=== PATIENT | female | born 1965 | race Caucasian/White ===

== ENCOUNTER 2019-10-28 07:12 | Inpatient (IN) | payer BC ==
[~2019-10-28 07:12] MED LIST: Bupivacaine 0.5% 50 ML MDV ONE; Lidocaine 1% with EPINEPHrine 1:100,000 50 ML MDV ONE
[2019-10-28] MEDS ORDERED: Dextrose 5%-Lactated Ringers 1,000 ML IV SCH (08:00)
[2019-10-28] MEDS ORDERED: cefOXitin 2 GM in Sodium Chloride 0.9% 50 ML IV ONE (08:15)
[2019-10-28] MEDS ORDERED: Neomycin/Polymyxin B 1 ML, Sodium Chloride 0.9% 750 ML IRR ONE ×2 (08:15)
[2019-10-28] MEDS ORDERED: Naloxone 0.4 MG/ML SDV IVPUSH PRN (08:57)
[2019-10-28] MEDS ORDERED: Ketamine 50 MG in Sodium Chloride 0.9% 49.5 ML IV SCH (09:00)
[2019-10-28] MEDS ORDERED: Ketamine 500 MG/5 ML MDV IV SCH (09:00)
[2019-10-28] MEDS ORDERED: Meropenem 500 MG SDV ONE (09:07)
[2019-10-28] MEDS ORDERED: Propofol 200 MG/20 ML SDV ONE (09:15)
[2019-10-28] MEDS ORDERED: Neostigmine Methylsulfate 1 MG/ML 5 ML Syringe ONE (09:15)
[2019-10-28] MEDS ORDERED: Ondansetron 4 MG/2 ML SDV ONE (09:15)
[2019-10-28] MEDS ORDERED: Rocuronium 50 MG/5 ML Vial ONE (09:15)
[2019-10-28] MEDS ORDERED: Succinylcholine 200 MG/10 ML MDV ONE (09:15)
[2019-10-28] MEDS ORDERED: Dexamethasone 4 MG/ML SDV ONE (09:15)
[2019-10-28] MEDS ORDERED: Glycopyrrolate 0.2 MG/ML 5 ML MDV ONE (09:15)
[2019-10-28] MEDS ORDERED: fentaNYL 100 MCG/2 ML SDV ONE (09:16)
[2019-10-28] MEDS ORDERED: fentaNYL 250 MCG/5 ML SDV ONE ×2 (09:16→11:37)
[2019-10-28] MEDS ORDERED: Lactated Ringers 1,000 ML ONE (11:49)
[2019-10-28] MEDS ORDERED: diphenhydrAMINE 50 MG/ML SDV IVPUSH PRN ×2 (13:45)
[2019-10-28] MEDS ORDERED: Naloxone 0.4 MG/ML SDV IV PRN (13:45)
[2019-10-28] MEDS ORDERED: hydrOXYzine HCL 100 MG/2 ML SDV IM PRN (13:51)
[2019-10-28] MEDS ORDERED: Ondansetron 4 MG/2 ML SDV IVPUSH PRN (13:52)
[2019-10-28] MEDS: fentaNYL 2,500 MCG in Sodium Chloride 0.9% 200 ML EPIDUR SCH (15:00)
[2019-10-28] MEDS: Pantoprazole 40 MG Vial IV SCH (15:33)
[2019-10-28] MEDS: cefOXitin 2 GM in Sodium Chloride 0.9% 50 ML IV SCH (17:02)
[2019-10-28] MEDS: Acetaminophen 500 MG Tab PO SCH (17:02)
[2019-10-28] MEDS: Dextrose 5%-Lactated Ringers 1,000 ML IV SCH (17:39)
[2019-10-28] MEDS: Ibuprofen 600 MG Tab PO SCH (20:54)
[2019-10-29] MEDS: cefOXitin 2 GM in Sodium Chloride 0.9% 50 ML IV SCH ×3 (00:21→11:33)
[2019-10-29] MEDS: Dextrose 5%-Lactated Ringers 1,000 ML IV SCH ×2 (00:21→07:52)
[2019-10-29] MEDS: Acetaminophen 500 MG Tab PO SCH ×4 (00:22→17:12)
[2019-10-29] MEDS: Ibuprofen 600 MG Tab PO SCH ×4 (03:19→21:07)
[2019-10-29] MEDS: fentaNYL 2,500 MCG in Sodium Chloride 0.9% 200 ML EPIDUR SCH (06:17)
[2019-10-29] MEDS: Aspirin 81 MG Tab.EC PO SCH (08:00)
[2019-10-29] MEDS: Hydrochlorothiazide 25 MG Tab PO SCH (08:01)
[2019-10-29] MEDS: RAMIPRIL 10 MG PO SCH (08:02)
[2019-10-29] MEDS: Escitalopram 10 MG Tab PO SCH (08:02)
--- NOTE | 2019-10-29 15:38 | PN ---
DATE OF SERVICE: 10/29/2019 SUBJECTIVE: Radha is postoperative day #1. Vital signs have been stable. She does report she is hungry. Oral intake was 1350. Urine output via Rubin catheter was 1085. KALE drain put out 230 mL of a light pink drainage. She has had 1 pink colored stool and 1 blood clot. Has been up, ambulating. Pain is controlled with an epidural. REVIEW OF SYSTEMS: Remainder of review of systems negative for any pertinent positives and negatives. OBJECTIVE: GENERAL: Radha Hidalgo is a pleasant 54-year-old female. She is alert, orientated, sitting up in the chair. VITAL SIGNS: TPR 98.2, 61, 16, blood pressure 130/79. HEENT: Negative. NECK: Supple. HEART: Regular rate and rhythm. LUNGS: Clear. ABDOMEN: Dressings dry and intact. Abdominal binder is on. EXTREMITIES: Without peripheral edema. ASSESSMENT: Exploratory laparotomy with: 1. Rectosigmoid colon resection and coloproctectomy. 2. 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 Date: 10/28/2019. Surgeon: Lauro Zafar MD. PLAN: 1. Schedule and have consent signed for delayed primary closure for open incision, TAP block IV and local sedation, , 10/30/2019. Surgeon: Lauro Zafar MD. N.p.o. after midnight. 2. Regular diet. 3. Decrease IV to 100 mL per hour. 4. Continue good pulmonary toilet. 5. We will evaluate p.r.n. or in a.m. Carolina Collier PA-C /[id number] CHERYLE
[2019-10-29] MEDS: Pantoprazole 40 MG Vial IV SCH (17:12)
[2019-10-29] MEDS ORDERED: Calcium Carbonate 500 MG Tab.Chew PO PRN (19:22)
[2019-10-30] MEDS: fentaNYL 2,500 MCG in Sodium Chloride 0.9% 200 ML EPIDUR SCH (02:56)
[2019-10-30] MEDS: Dextrose 5%-Lactated Ringers 1,000 ML IV SCH ×2 (02:57→10:46)
[2019-10-30] MEDS: Ibuprofen 600 MG Tab PO SCH ×4 (04:30→20:07)
[2019-10-30] MEDS ORDERED: Meropenem 500 MG SDV ONE (06:39)
[2019-10-30] MEDS ORDERED: Bupivacaine 0.5% 50 ML MDV ONE (06:39)
[2019-10-30] MEDS ORDERED: Lidocaine 1% with EPINEPHrine 1:100,000 50 ML MDV ONE (06:39)
[2019-10-30] MEDS ORDERED: Propofol 200 MG/20 ML SDV ONE (06:56)
[2019-10-30] MEDS ORDERED: Midazolam 1 MG/ML 2 ML SDV ONE (06:56)
[2019-10-30] MEDS ORDERED: fentaNYL 100 MCG/2 ML SDV ONE (06:56)
--- NOTE | 2019-10-30 08:18 | PN ---
DATE OF SERVICE: 10/30/2019 SUBJECTIVE: Radha is n.p.o. She will be having delayed primary closure today. Pain has been managed. Temperature max is 100.1. Blood pressure has been slightly elevated, the highest is 153/86. Pain has been controlled. Up, ambulating. On a regular diet. Oral intake was 1620 and urine output via Rubin catheter 3080. KALE drain put out 50 mL of a light red drainage. She states that when she wiped, she had some pink drainage with blood clots rectally. REVIEW OF SYSTEMS: Remainder of review of systems negative for any pertinent positives and negatives. OBJECTIVE: GENERAL: Radha is a pleasant 54-year-old female, alert, orientated. VITAL SIGNS: TPR at 06:48, 100.1; 73; 16; blood pressure 153/86. HEENT: Negative. NECK: Supple. HEART: Regular rate and rhythm. LUNGS: Clear. ABDOMEN: Dressings dry and intact. Abdominal binder is on. EXTREMITIES: Without peripheral edema. ASSESSMENT: Exploratory laparotomy with: 1. Rectosigmoid colon resection and coloproctostomy. 2. Mobilization of the omentum for polypoid cecal carcinoma in the sigmoid colon. 3. Date of surgery: 10/28/2019. Surgeon: Lauro Zafar MD. PLAN: Orders to be written after delayed primary closure. Continue good pulmonary toilet. We will evaluate p.r.n. or in a.m. Carolina Collier PA-C /[id number] CHERYLE
[2019-10-30] MEDS ORDERED: traMADol 50 MG Tab PO PRN (08:59)
[2019-10-30] MEDS ORDERED: Sodium Chloride 0.9% 10 ML Syringe IV PRN (09:00)
[2019-10-30] MEDS: Hydrochlorothiazide 25 MG Tab PO SCH (09:05)
[2019-10-30] MEDS: Escitalopram 10 MG Tab PO SCH (09:07)
[2019-10-30] MEDS: Acetaminophen 500 MG Tab PO SCH ×4 (09:07→20:07)
[2019-10-30] MEDS: Aspirin 81 MG Tab.EC PO SCH (09:07)
[2019-10-30] MEDS: RAMIPRIL 10 MG PO SCH (09:08)
[2019-10-30] MEDS: Bisacodyl 5 MG Tab PO SCH ×2 (09:17→20:05)
[2019-10-30] MEDS: Pantoprazole 40 MG Tab.CR PO SCH (16:26)
[2019-10-31] MEDS: Ibuprofen 600 MG Tab PO SCH ×2 (03:22→08:01)
[2019-10-31] MEDS: Acetaminophen 500 MG Tab PO SCH ×2 (03:23→08:01)
[2019-10-31] MEDS: RAMIPRIL 10 MG PO SCH ×2 (04:12→08:00)
[2019-10-31] MEDS: Hydrochlorothiazide 25 MG Tab PO SCH ×2 (05:27→08:00)
[2019-10-31] MEDS ORDERED: Furosemide 20 MG/2 ML VIAL IVPUSH ONE (06:48)
[2019-10-31] MEDS: Bisacodyl 5 MG Tab PO SCH (08:00)
[2019-10-31] MEDS: Escitalopram 10 MG Tab PO SCH (08:00)
[2019-10-31] MEDS: Pantoprazole 40 MG Tab.CR PO SCH (08:01)
[2019-10-31] MEDS: Aspirin 81 MG Tab.EC PO SCH (08:01)
--- NOTE | 2019-11-03 11:40 | DISCH ---
ADMISSIONS DIAGNOSES: 1. Adenocarcinoma of the sigmoid colon. 2. Depression. 3. Hypertension. 4. Mitral stenosis with regurgitation. DISCHARGE DIAGNOSES: Exploratory laparotomy with: 1. Rectosigmoid colon resection and coloproctostomy. 2. Mobilization of the omentum for polypoid cecal carcinoma in the rectosigmoid. 3. Date of surgery: 10/28/2019. Surgeon: Lauro Zafar MD. 4. Delayed primary closure. Date: 10/30/2019. HISTORY: Radha Hidalgo is a 54-year-old female with new diagnosis of adenocarcinoma of the sigmoid colon. After preoperative evaluation and discussion of possible risks and possible complications, she wished to proceed with surgical procedure. HOSPITAL COURSE: Radha had her surgery on 10/28/2019. She had no operative complications. The pain was well managed with an epidural. On postoperative day #1, she had a regular diet. IV was decreased. She was up, ambulating. On postoperative day #2, delayed primary closure. Started on oral pain medication and continued with bowel stimulation. She had a bowel movement. Pain was controlled with Tylenol and ibuprofen. Her activity was good. Oral intake and output were adequate, and she was able to be discharged to home on 10/31/2019. PHYSICAL EXAMINATION: GENERAL: Radha Hidalgo is a 54-year-old female. VITAL SIGNS: Height is 5 feet 8.9 inches, weight is 204 pounds. TPR at 0326 hours, 98.6, 62, 16, blood pressure 180/90. HEENT: Negative. NECK: Supple. HEART: Regular rate and rhythm. LUNGS: Clear. ABDOMEN: Aquacel dressing is on. Abdominal binder is on. EXTREMITIES: Without peripheral edema. DISPOSITION: Discharged to home. CONDITION: Stable and improving. FOLLOWUP: Appointment with Carolina Collier PA-C, 11/10/2019 at 11:00 a.m. HOME MEDICATIONS: 1. Tylenol 1000 mg oral q.6 hours p.r.n. pain. 2. Aspirin 81 mg p.o. daily. 3. Motrin 600 mg every 6 hours p.r.n. pain. 4. To resume home medication of: a. Aspirin 81 mg daily. b. Lexapro 10 mg oral daily. c. Multivitamin 1 tablet daily. d. Ramipril 20 mg oral daily. e. Hydrochlorothiazide 25 mg oral daily. DIET: Usual diet as tolerated. Drink 8 to 10 glasses of water a day. ACTIVITY: No lifting greater than 10 pounds for 6 weeks. Other activity: Walk at least 6 times daily inside your home. Shower/bathing: May shower. DISCHARGE INSTRUCTIONS: Notify provider if any fever, increased pain, nausea, or vomiting. Wound incision care. Keep site clean and dry. Take off Aquacel dressing on Sunday11/04/2019. Wear abdominal binder for 6 weeks and then as tolerated. SPECIAL INSTRUCTIONS: Use incentive spirometer 10 times every hour while awake for 1 week. If any questions or concerns, call [facility] between 8:00 a.m. and 5:00 p.m. at [phone] or [facility] after hours at [phone] Zafar or Carolina. ADDENDUM: Prior to discharge, pathology report was received. Lauro Zafar MD, reviewed results. The patient was notified of the pathology report. Lymph nodes were all negative for any cancer.
--- NOTE | 2019-11-05 16:30 | OR ---
DATE OF PROCEDURE: 10/28/2019 SURGEON: Lauro Zafar MD PREOPERATIVE DIAGNOSIS: Polypoid carcinoma, sigmoid colon. POSTOPERATIVE DIAGNOSIS: Polypoid carcinoma, sigmoid colon. OPERATIVE PROCEDURE: Exploratory laparotomy with: 1. Rectosigmoid resection with coloproctostomy (15829). 2. Mobilization of omentum into pelvis to displace small bowel from pelvic and abdominal wall (88433). ANESTHESIA: General plus epidural. INDICATIONS FOR PROCEDURE: This is a 54-year-old female who recently underwent a colonoscopy, which identified a large polypoid mass in the sigmoid colon. This was subsequently resected by laparoscopic approach, but the pathology came back showing foci of invasive adenocarcinoma. Given this, the patient to undergo formal sigmoid resection. Potential risks of the procedure including bleeding, infection, leaks from anastomosis potentially requiring a temporary colostomy were reviewed, along with the remote possibility of cardiopulmonary, septic, or hemorrhagic complications leading to , and the patient wishes to proceed. She is aware that, if she has positive lymph nodes, she would need additional postoperative chemotherapy. DETAILS OF PROCEDURE: The patient was taken to the operating room and placed in a supine position. After general endotracheal anesthesia was induced, she was converted to a lithotomy position. Rubin catheter was inserted and the abdomen prepped and draped. A midline incision from the umbilicus to the pubis was made and carried down through the full- thickness abdominal wall. Upon entering the peritoneal cavity, general exploration was undertaken. She had no evident lymphadenopathy within the area around the superior hemorrhoidal vessels, periaortic area, and no evidence of liver metastasis. The Leidy Ink stained colon was more or less in the mid sigmoid colon and was easily identified. At this point, the junction of the descending colon and sigmoid colon was divided with a CLAU stapler. Peritoneal reflection of the descending colon was divided and reflected, allowing mobilization of that segment of colon down toward the pelvis. Mesenteric dissection continued with CLAU marilee, which extended up to the origin of the superior hemorrhoidal vessels and then along the sacrum and the rectum then divided with the CLAU curved staple and specimen delivered from the field. At this point, the descending colon was mobilized somewhat further. This then came down to the point of rectal division without tension. Small opening on proximal staple line was then made, and the anvil of a 28 mm EEA stapler passed into that lumen and then it was re- stapled, bringing the spike of the anvil out through the most dependent portion of the divided proximal colon. The main body of the EEA stapler was then passed up to the rectal staple line, the 2 components of the stapler connected, and the coloproctostomy accomplished. Upon removal of stapler, double donuts of mucosa were noted within it. With the pelvis being flooded with antibiotic-containing saline solution, the colonoscope was passed into the rectum and up to the level of the anastomosis. This was grossly intact with good blood supply evident on both sides and no air bubbles were noted. Colonoscope was then evacuated. The anastomosis was reinforced with some 3-0 Vicryl seromuscular stitch and the abdomen further drained. A Karlos-Steele drain was taken out through the right mid abdomen and taken into the depths of the pelvis adjacent to the anastomosis. In the event that the patient might at any point need postoperative radiation treatment but also to generally avoid small bowel adhesions to the abdominal and pelvic wall, the omentum was then mobilized downward into the pelvis and sutured to the posterior aspect of the urinary bladder with some 3-0 Vicryl stitch. The peritoneum was then approximated semilunaris downward to the pubis and then the remainder of the anterior fascia closed with #2 Vicryl stitch. The skin and subcutaneous tissue were left open for a planned delayed primary closure in 48 hours to limit chances of wound infection. The patient was taken to the recovery room in satisfactory condition. There were no evident complications. Lauro Zafar MD /[id number]
--- NOTE | 2019-11-05 16:30 | OR ---
DATE OF PROCEDURE: 10/30/2019 SURGEON: Lauro Zafar MD PREOPERATIVE DIAGNOSIS: Open abdominal incision. POSTOPERATIVE DIAGNOSIS: Open abdominal incision. OPERATIVE PROCEDURE: Delayed primary closure of open abdominal incision. ANESTHESIA: IV sedation. INDICATIONS FOR PROCEDURE: This is a 54-year-old status post sigmoid colon resection for polypoid carcinoma and is undergoing delayed primary closure of the wound that was left open following that procedure to limit chances of wound infection. Potential risks of the procedure including bleeding and infection were reviewed, and the patient wishes to proceed. DETAILS OF PROCEDURE: The patient was taken to the operating room, placed in a supine position but then straightened somewhat up to minimize aspiration risk. The operative dressing was taken down, wound was inspected, found to be clean. The wound was then prepped and draped. Bilateral transversus abdominis plane blocks were then placed using ultrasound guidance, and the wound was irrigated with a meropenem-containing saline solution. Wound was anesthetized with 1% lidocaine mixed with Marcaine and closed with 2 layers of 3-0 and 4- 0 Vicryl stitch deep and then marilee for the skin. Dressing was applied. The patient was taken to the recovery room in satisfactory condition. Lauro Zafar MD /[id number]
== END 2019-10-31 09:27 | disposition home or self-care (01) | DRG 221 ==
LOC: JP.SDSSCHI 07:12 → JP.SDS 07:12 → EDSTATUS 08:45 → JP.MS 12:45
PROVIDERS: ADMIT Surgery; ATTEND Surgery
PROC: 0DBN0ZZ Excision of Sigmoid Colon, Open Approach (ICD-10-PCS; principal; 2019-10-28)
PROC: 0DNU0ZZ Release Omentum, Open Approach (ICD-10-PCS; 2019-10-28)
PROC: 0JQ80ZZ Repair Abdomen Subcutaneous Tissue and Fascia, Open Approach (ICD-10-PCS; 2019-10-30)
DX: C18.7 Malignant neoplasm of sigmoid colon (principal); F32.9 Major depressive disorder, single episode, unspecified; I10 Essential (primary) hypertension; Z88.8 Allergy status to other drugs, medicaments and biological substances; Z79.82 Long term (current) use of aspirin; Z79.899 Other long term (current) drug therapy; Z90.49 Acquired absence of other specified parts of digestive tract
CPT/HCPCS: 36415; 51702; 82378; 88309; 94762; A9270-GY; C9113; J0171; J0330; J0694; J1100; J1940; J2185; J2250; J2405; J2704; J2710; J2795; J3010; J3490; J7050; J7120; J7121

== ENCOUNTER 2020-04-26 07:34 | Day surgery (SDC) | payer BC ==
[2020-04-26] MEDS ORDERED: Dextrose 5%-Lactated Ringers 1,000 ML IV SCH (08:15)
[2020-04-26] MEDS ORDERED: Midazolam 1 MG/ML 2 ML SDV ONE (08:29)
[2020-04-26] MEDS ORDERED: fentaNYL 100 MCG/2 ML SDV ONE (08:29)
[2020-04-26] MEDS ORDERED: Propofol 200 MG/20 ML SDV ONE (08:30)
[2020-04-26] MEDS ORDERED: Sodium Chloride 0.9% 10 ML ONE (11:46)
[2020-04-26] MEDS ORDERED: Meropenem 500 MG SDV ONE (11:46)
--- NOTE | 2020-05-04 14:27 | OR ---
DATE OF PROCEDURE: 04/26/2020 SURGEON: Lauro Zafar MD PREOPERATIVE DIAGNOSES: Status post sigmoid resection for sessile tubulovillous adenoma. POSTOPERATIVE DIAGNOSES: 1. Status post sigmoid resection for sessile tubulovillous adenoma. 2. 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 OPERATIVE PROCEDURE: Flexible colonoscopy with dilation of stricture at the colorectal anastomosis (61429). ANESTHESIA: IV sedation. INDICATION FOR PROCEDURE: The patient is scheduled for followup colonoscopy. The patient underwent a rectosigmoid resection in October of this year for what turned out to be a sessile tubulovillous adenoma. colonoscopy at this time. Potential risks including bleeding and perforation were discussed, and the patient wishes to proceed. DETAILS OF PROCEDURE: The patient was taken to the operating room, placed in a left lateral decubitus position. IV sedation was administered after which the initial digital rectal exam was performed and was unremarkable. Colonoscope was then passed into the rectum. Around 10 cm to 12 cm, the patient was noted to have a stricture at the colorectal anastomosis. This was not wide enough to allow passage of the colonoscope. A [employer] gastrointestinal catheter was centered across the anastomosis and inflated to 36-Jamaican size. This was held in position for 1 minute after which the balloon catheter was deflated and withdrawn. Scope was then easily passed through that area. There was some tearing of mucosa consistent with the dilation but otherwise appeared to be uncomplicated. The remainder of the colonoscopic examination was unremarkable. Prep was quite good with only a small amount of liquid stool despite the stricture having been present. Scope was withdrawn. The above findings were reconfirmed, and the procedure then concluded. The recommendation would be to repeat this colonoscopy in 6 months to see if there is any recurrent stricturing. If in the meantime, she is to develop increasing constipation and/or frequent loose bowel movements, which would often be the presenting finding of a partial obstruction, then she should contact us and would undergo a re-examination and re-dilation. Lauro Zafra MD /[id number]
== END 2020-04-26 13:15 | disposition home or self-care (01) ==
LOC: JP.SDS 07:34
PROVIDERS: ATTEND Surgery
DX: K91.89 Other postprocedural complications and disorders of digestive system (principal); I10 Essential (primary) hypertension; E66.9 Obesity, unspecified; Z85.038 Personal history of other malignant neoplasm of large intestine; Z68.30 Body mass index [BMI] 30.0-30.9, adult
CPT/HCPCS: 45386; J2185; J2250; J2704; J3010; J7121

== ENCOUNTER 2020-10-25 05:27 | Day surgery (SDC) | payer BC ==
[2020-10-25] MEDS ORDERED: Dextrose 5%-Lactated Ringers 1,000 ML IV SCH (05:45)
[2020-10-25] MEDS ORDERED: fentaNYL 100 MCG/2 ML SDV ONE (07:16)
[2020-10-25] MEDS ORDERED: Midazolam 1 MG/ML 2 ML SDV ONE (07:16)
[2020-10-25] MEDS ORDERED: Propofol 200 MG/20 ML SDV ONE (07:16)
--- NOTE | 2020-10-28 08:14 | OR ---
DATE OF PROCEDURE: 10/25/2020 SURGEON: Lauro Zafar MD PREOPERATIVE DIAGNOSIS: History of colon polyps, status post rectosigmoid resection for sessile polyp. POSTOPERATIVE DIAGNOSES: 1. No recurrent evident colorectal polyps. 2. Mild stricture of colorectal anastomosis. OPERATIVE PROCEDURE: Flexible colonoscopy with dilation of colorectal anastomosis (82649). ANESTHESIA: IV sedation. INDICATIONS FOR PROCEDURE: A 55-year-old female presenting for followup colonoscopy. She is status post a rectosigmoid resection for a sessile colon polyp and presents now for a followup colonoscopy. Potential risks including bleeding and perforation were discussed, and the patient wishes to proceed. DETAILS OF PROCEDURE: The patient was taken to the operating room and placed in a left lateral decubitus position. IV sedation was administered, after which the digital rectal examination was performed and was unremarkable. Colonoscope was then passed up to the level of the colorectal anastomosis. At that point, there was noted to be some stricturing of that with scope not quite being able to be passed through that area. A [employer] gastrointestinal catheter was centered across the anastomosis and inflated to 36-Bhutanese size which was held in position for 1 minute, after which the dilator was removed. Scope was then easily passed through the anastomosis. Remainder of the examination was then completed to the level of the cecum. The prep was quite good. Only small amount of liquid stool was present. Beyond the mild stricture of the colorectal anastomosis, no additional abnormalities were noted. Specifically, there was no diverticular disease. No areas of colitis. No polyps or other signs of neoplasia. Scope was then withdrawn and the above findings reconfirmed, and the procedure was then concluded. RECOMMENDATION: Would be to repeat the colonoscopy in 5 years. The stricture is unlikely to become significantly symptomatic, but if the patient does develop change in bowel habits, an earlier colonoscopy would be warranted to look at that potential issue, but otherwise it will only need to be addressed on an as needed basis, and otherwise the next colonoscopy for followup of the polyps would be in 5 years. Lauro Zafar MD /[id number]
== END 2020-10-25 08:40 | disposition home or self-care (01) ==
LOC: JP.SDS 05:27
PROVIDERS: ATTEND Surgery
DX: K91.89 Other postprocedural complications and disorders of digestive system (principal); Z86.010 Personal history of colon polyps; Z90.49 Acquired absence of other specified parts of digestive tract; E66.9 Obesity, unspecified; Z68.31 Body mass index [BMI] 31.0-31.9, adult
CPT/HCPCS: 45386; J2250; J2704; J3010; J7121

== ENCOUNTER 2024-07-17 06:28 | Day surgery (SDC) | payer BC ==
[2024-07-17] MEDS ORDERED: Propofol 200 MG/20 ML SDV ONE (07:29)
[2024-07-17] MEDS ORDERED: fentaNYL 50 MCG/ML SDV ONE (07:30)
[2024-07-17] MEDS ORDERED: Midazolam 1 MG/ML 2 ML SDV ONE (07:30)
[2024-07-17] MEDS: Lactated Ringers 1,000 ML IV SCH (07:43)
== END 2024-07-17 09:45 | disposition home or self-care (01) ==
LOC: JP.SDS 06:28
PROVIDERS: ATTEND Family Medicine
DX: D12.3 Benign neoplasm of transverse colon (principal); K21.9 Gastro-esophageal reflux disease without esophagitis; Z88.8 Allergy status to other drugs, medicaments and biological substances; Z86.0100 Personal history of colon polyps, unspecified
CPT/HCPCS: 00811; 45380; 88305; J2250; J2704; J3010; J7120